=== PATIENT | male | born 1960 | race Caucasian/White ===

== ENCOUNTER 2023-05-30 22:38 | Emergency (ER) | payer MEDICARE, MEDICAID, SELFPAY ==
--- NOTE | 2023-05-30 22:38 | RT.EKG_ITS ---
APPROVED REPORT Exam: Resting ECG Reason for Exam: chest pain Patient Location: E HR:84 bpm ECG Measurements Heart Rate 84 AXIS AR 186 P 80 QRSd 90 QRS 30 QT 380 T 50 QTc 449 Conclusion Sinus rhythm...normal P axis, V-rate 60- 99 Anteroseptal infarct, age indeterminate...Q >35mS, T neg, V1-V2 Physician: no stemi
[2023-05-30 22:39] VITALS: BP 148/86; PULSE 81; RESP 18; TEMP 36.3; O2SAT 96
--- NOTE | 2023-05-30 22:45 | DI.CT_ITS ---
Exam(s) CT HEAD CERVICAL SPINE WO EXAM: CT HEAD CERVICAL SPINE WO CLINICAL HISTORY: fell, hit head, drunk. TECHNIQUE: Imaging Protocol: Axial computed tomography images with coronal and sagittal reformatted images were created and reviewed COMPARISON: No exams were available for comparison FINDINGS: BRAIN: There are no skull fractures nor fluid in the visualized paranasal sinuses. There is no evidence of intracranial hemorrhage, mass effect, or shift of midline structures. There are no extra-axial fluid collections. The ventricles are not enlarged or shifted and there is no blo od within the ventricular system nor within the basal cisterns. CERVICAL SPINE: There is no evidence of fracture nor listhesis. No significant prevertebral soft tissue swelling. Minimal disc space narrowing. There is multilevel bilateral facet arthropathy. There is no significant facet joint malalignment. No significant osseous lesions evident. IMPRESSION: No acute intracranial findings on this noninfused CT scan of the brain. No evidence of cervical spine fracture, malalignment, nor acute compromise of the cervical spinal can al. RADIATION DOSE DELIVERED: Total DLP DATA REPOSITORY: All CT scans at this facility are submitted to the National Radiology Data Registry (NRDR) Dose Index Registry (DIR) with the [employer] (ACR). RADIATION OPTIMIZATION: All CT scans at this facility use at least one of these dose optimization te chniques: automated exposure control; mA and/or kV adjustment per patient size (includes targeted exa ms where dose is matched to clinical indication); or iterative reconstruction.
--- NOTE | 2023-05-30 22:45 | DI.CT_ITS ---
Exam(s) CT THORACIC SPINE RECONS EXAM: CT THORACIC SPINE RECONS CLINICAL HISTORY: fell, hit left clavicle, old fx, generalized CP. TECHNIQUE: Imaging Protocol: Axial computed tomography images with coronal and sagittal reformatted images were created and reviewed. CONTRAST MATERIAL: None COMPARISON: CT CT CHEST WO from 05/30/2023 FINDINGS: OSSEOUS: No evidence of compression fracture or listhesis. No facet malalignment. Multilevel degene rative changes. IMPRESSION: No acute fractures in the thoracic spinal column. RADIATION DOSE DELIVERED: Total DLP DATA REPOSITORY: All CT scans at this facility are submitted to the National Radiology Data Registry (NRDR) Dose Index Registry (DIR) with the [employer] (ACR). RADIATION OPTIMIZATION: All CT scans at this facility use at least one of these dose optimization te chniques: automated exposure control; mA and/or kV adjustment per patient size (includes targeted exa ms where dose is matched to clinical indication); or iterative reconstruction.
--- NOTE | 2023-05-30 22:45 | DI.CT_ITS ---
Exam(s) CT CHEST WO EXAM: CT CHEST WO CLINICAL HISTORY: fell, hit left clavicle, old fx, generalized CP. TECHNIQUE: Multi planar reconstructions were performed. CONTRAST MATERIAL: None COMPARISON: CT CT THORACIC SPINE RECONS from 05/30/2023 FINDINGS: CHEST: LUNGS: There is respiratory motion artifact. No evidence of lung contusion or pleural effusion no pn eumothorax. No incidental lung masses. No findings in trachea and mainstem bronchi. MEDIASTINUM: No evidence of sternal fracture or mediastinal hematoma. No hilar nor mediastinal adeno luna. Visualized thyroid unremarkable.No obvious axillary adenopathy CARDIAC: Heart size is normal. There is no pericardial effusion.Caliber of the thoracic aorta is wit hin normal limits. OSSEOUS: Nonacute appearing comminuted nonunion fracture of the left clavicle. No acute fractures id entified. Posterior right rib fractures, not acute.. Healed right rib fractures.. IMPRESSION: 1. No acute intrathoracic trauma findings. 2. Bilateral rib fractures which do not appear acute RADIATION DOSE DELIVERED: Total DLP DATA REPOSITORY: All CT scans at this facility are submitted to the National Radiology Data Registry (NRDR) Dose Index Registry (DIR) with the [employer] (ACR). RADIATION OPTIMIZATION: All CT scans at this facility use at least one of these dose optimization te chniques: automated exposure control; mA and/or kV adjustment per patient size (includes targeted exa ms where dose is matched to clinical indication); or iterative reconstruction.
[2023-05-30 22:46] VITALS: RESP 18
[2023-05-30] MEDS: Normal Saline 500 ML IV (22:54)
[2023-05-30 23:00] LABS: Abs Immature Grans 0.06 10^3/uL (0.0-0.06); Absolute Basophil Count 0.07 10^3/uL (0.0-0.2); Absolute Eosinophil Count 0.07 10^3/uL (0.0-0.7); Basophils % 0.6; Eosinophils % 0.6; HCT 48.7 % (40.0-50.0); HGB 15.9 g/dL (13.5-17.5); Immature Grans % 0.5; Lymphocytes % 29.9; MCH 29.1 pg (27.0-33.0); MCHC 32.6 % (32.0-36.0); MCV 89 fL (80-95); MPV 9.9 fL (8.0-11.0); Monocytes % 4.5; Neutrophils % 63.9; Platelet Count 376 10^3/uL (130-400); RBC 5.47 10^6/uL (4.36-5.78); RDW 15.6 % (11.8-14.1); RDW-SD 51.3 fL; WBC 11.22 10^3/uL (4.4-10.8)
--- NOTE | 2023-05-30 23:00 | W.ED.GENAD ---
Discharge Plan Disposition Patient Disposition: [facility] Discharge Details Chief Complaint: Chest Pain Clinical Impression: Alcohol intoxication, Closed fracture of left clavicle Primary Care Provider: Unknown,Unknown ED Provider: Ken Duran Home Meds and New Rx's Prescriptions: No Action amitriptyline 10 mg tablet 20 mg PO QHS amlodipine 10 mg tablet 10 mg PO DAILY atorvastatin 40 mg tablet 40 mg PO DAILY vitamin B complex [B Complex-Vitamin B12] Tablet 1 tab PO DAILY cholecalciferol (vitamin D3) 25 mcg (1,000 unit) capsule 25 mcg PO DAILY clonazepam 1 mg tablet 1 mg PO PRN fenofibrate 150 mg capsule 145 mg PO DAILY fluticasone propionate 50 mcg/actuation spray,suspension 2 spray intranasal DAILY PRN Rx Instructions: administer into each nostril gabapentin 300 mg capsule 900 mg PO QHS magnesium oxide 400 mg (241.3 mg magnesium) tablet 400 mg PO DAILY metoprolol succinate 200 mg capsule,sprinkle,ER 24hr 200 mg PO DAILY omeprazole 40 mg capsule,delayed release(DR/EC) 40 mg PO DAILY pramipexole 0.125 mg tablet 0.125 mg PO QHS topiramate 100 mg tablet 100 mg PO BID Discharge Instructions Instructions: Clavicle Fracture (ED), Alcohol Intoxication (ED) Additional Instructions: At this time your left clavicle remains unhealed with a chronic old fracture. Please use the sling as directed. If you notice any worsening of your symptoms, or any new symptoms such as vomiting, diarrhea, fever, chills, shortness of breath, chest pain, numbness, weakness, or fainting , please return immediately to the emergency department for reevaluation. Please follow up with your primary care provider as soon as possible for reassessment and reevaluation. As always, it was a pleasure participating in your medical care today. Medical Decision Making This is a 63-year-old male with a reported past medical history of bipolar disorder, CKD, hypertension, seizures and alcohol use disorder who presents today for chest pain. It appears that earlier today patient was at home, per patient answered the door and then fell and hit his chest and head. This caused pain in his left clavicle which had previously been fractured in the past, and some mild chest pain. He continued to drink throughout the day and was eventually brought to [facility] and evaluated. Per the evaluation he did not reveal to practitioners there that he had some chest pain. He was worked up and had a stable EKG, mild hypernatremia, but no other significant abnormality. He was eventually discharged and medically cleared and placed into the custody of police for transition to the sobriety unit. On his way there the patient began complaining of chest pain and upon arrival to the sobriety unit he was evaluated by EMS and then brought to the ER for further assessment. He is not under custody of the police, however plan is for him to go back to the sobriety unit after clearance. Aside from pain in his left clavicle and generalized pain in his chest he denies any other complaints. No history of heart attack. Left clavicle pain is made worse with palpation and movement. Chest pain is very mild and located in the left ribs and right ribs on palpation. No other modifying factors. Exam demonstrates an intoxicated appearing male, no significant trauma except for the left clavicle. Due to the nature of his previously undisclosed injury I do feel that further imaging is indicated. With his risk factors we will get a CT scan of the head neck and chest. Differential includes subdural, clavicle fracture, rib fractures. Less likely pneumothorax. We will gently rehydrate, get repeat labs, monitor closely and reassess. EKG shows no evidence of STEMI. 12:48 AM Laboratory work-up is returned stable, sodium 148, chloride 109, troponin normal, alcohol level 226. EKG benign. CT scan of the head and cervical spine demonstrate no acute process. 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 Patient is otherwise notably clinically stable with no evidence of neurologic deficit or other acute process.. Patient will be disposition to police to the intoxication area. Discussed red flags which to return. I have extensively reviewed the treatment plan and discharge instructions with the patient. I have addressed all patient concerns at this time. The patient was made aware of what symptoms to monitor for that would warrant a return to the emergency department. Discussed the plan with the patient, they demonstrate verbal understanding and agreement with our assessment and plan at this time. The documentation in this chart was dictated using [employer] dictation software. Please excuse any dictation errors. FINDINGS: Bones/joints: No acute fracture or subluxation. Prominent calcification and atrophy of ligamentum flavum most pronounced C5-C6 and C6-C7 levels resulting in likely mild central canal stenosis at these levels. Minor endplate hypertrophy and anterior enthesophytes without richie ankylosis. Soft tissues: No suspicious lesions. IMPRESSION: No acute bony pathology. Thank you for allowing us to participate in the care of your patient. Dictated and Authenticated by: Rose Chung MD 05/31/2023 12:28 AM Eastern Time ([place] & [place]) FINDINGS: Lungs: No airspace consolidation. The lungs appear hyperinflated. Mild apical pulmonary emphysema.Scattered microatelectasis. Pleural spaces: No pneumothorax. No pleural effusion. Heart: No cardiomegaly. No pericardial effusion. Lymph nodes: No enlarged lymph nodes. Vasculature: No aortic aneurysm. Kidneys and ureters: Mild prominence right and left renal pelvis without calyceal dilation in the imaged kidneys favoring benign extrarenal pelvis bilaterally. Bones/joints: Chronic healed right rib deformities. Chronic healed left rib deformities. No acute fracture or listhesis allowing for motion artifact. There is a right anterolateral 8th rib fracture which appears subacute and is healing. The left clavicular deformity appears chronic and ununited. Soft tissues: No suspicious lesions. Other findings: Motion artifact. IMPRESSION: 1. No acute findings on noncontrast imaging. FINDINGS: Brain: Cerebrum is unremarkable. Brown-white matter differentiation is intact. No mass lesion is seen. No mass effect or midline shift. Thalamus is unremarkable. No evidence of hemorrhage. Cerebellum is unremarkable. No posterior fossa mass lesion or mass effect. No pathologic edema. No evidence of cerebellar hemorrhage. Brainstem is unremarkable. No evidence of pontine hemorrhage. No mass effect on the brainstem. Cerebral ventricles: No ventriculomegaly. Paranasal sinuses: Visualized sinuses are unremarkable. No fluid levels. Mastoid air cells: Visualized mastoid air cells are well aerated. Bones/joints: No evidence of fracture. Soft tissues: Unremarkable. IMPRESSION: No evidence of fracture. No evidence of acute intracranial bleed. FINDINGS: Bones/joints: Facet arthropathy at multiple levels. No fracture or dislocation in cervical spine. Limited visualization of old fracture of left clavicle with areas of nonunion. No disc protrusion or extrusion. Lungs: Lung apices are normal. Soft tissues: Unremarkable. IMPRESSION: 1. No fracture or dislocation in cervical spine. 2. Limited visualization of old fracture of left clavicle with areas of nonunion. Thank you for allowing us to participate in the care of your patient. Dictated and Authenticated by: Alicia Esqueda MD 05/31/2023 12:25 AM Eastern Time ([place] & [place]) HPI General Date/Time Provider Initiated Documentation: 05/30/23 22:40. HPI Narrative: This is a 63-year-old male with a reported past medical history of bipolar disorder, CKD, hypertension, seizures and alcohol use disorder who presents today for chest pain. It appears that earlier today patient was at home, per patient answered the door and then fell and hit his chest and head. This caused pain in his left clavicle which had previously been fractured in the past, and some mild chest pain. He continued to drink throughout the day and was eventually brought to [facility] and evaluated. Per the evaluation he did not reveal to practitioners there that he had some chest pain. He was worked up and had a stable EKG, mild hypernatremia, but no other significant abnormality. He was eventually discharged and medically cleared and placed into the custody of police for transition to the sobriety unit. On his way there the patient began complaining of chest pain and upon arrival to the sobriety unit he was evaluated by EMS and then brought to the ER for further assessment. He is not under custody of the police, however plan is for him to go back to the sobriety unit after clearance. Aside from pain in his left clavicle and generalized pain in his chest he denies any other complaints. No history of heart attack. Left clavicle pain is made worse with palpation and movement. Chest pain is very mild and located in the left ribs and right ribs on palpation. No other modifying factors. Related Data Home Medications Medication Instructions Recorded Confirmed amitriptyline 10 mg tablet 20 mg PO QHS 05/30/23 05/30/23 amlodipine 10 mg tablet 10 mg PO DAILY 05/30/23 05/30/23 atorvastatin 40 mg tablet 40 mg PO DAILY 05/30/23 05/30/23 cholecalciferol (vitamin D3) 25 25 mcg PO DAILY 05/30/23 05/30/23 mcg (1,000 unit) capsule clonazepam 1 mg tablet 1 mg PO PRN 05/30/23 05/30/23 fenofibrate 150 mg capsule 145 mg PO DAILY 05/30/23 05/30/23 fluticasone propionate 50 2 spray intranasal DAILY PRN 05/30/23 05/30/23 mcg/actuation nasal spray,suspension gabapentin 300 mg capsule 900 mg PO QHS 05/30/23 05/30/23 magnesium oxide 400 mg (241.3 mg 400 mg PO DAILY 05/30/23 05/30/23 magnesium) tablet metoprolol succinate 200 mg 200 mg PO DAILY 05/30/23 05/30/23 capsule sprinkle, ext. release 24 hr omeprazole 40 mg capsule,delayed 40 mg PO DAILY 05/30/23 05/30/23 release pramipexole 0.125 mg tablet 0.125 mg PO QHS 05/30/23 05/30/23 topiramate 100 mg tablet 100 mg PO BID 05/30/23 05/30/23 vitamin B complex (B 1 tab PO DAILY 05/30/23 05/30/23 Complex-Vitamin B12 tablet) Allergies Allergy/AdvReac Type Severity Reaction Status Date / Time latex Allergy Mild Hives Unverified 05/30/23 22:56 phenytoin [From Dilantin] Allergy Mild Hives Unverified 05/30/23 22:56 General Stated Complaint: Chest Pain LIZ: 2 Review of Systems All systems reviewed & are unremarkable except as noted in HPI and below PFSH All Active Problems (Updated 05/31/23 @ 00:48 by Ken Duran DO) Closed fracture of left clavicle (Acute) Alcohol intoxication (Acute) Social History Smoking/Tobacco Use Status: Never Smoking risk assessment performed?: Yes Drug use: Daily Substance use type: marijuana Exam Narrative Exam Narrative: 1.Const: Well-nourished, Well-developed, appearing stated age 2.Eyes: PERRL, no conjunctival injection, and symmetrical lids. 3.ENT: Atraumatic external nose and ears. Moist MM. Neck: Symmetric, trachea midline, No thyromegaly. There is no evidence of raccoon eyes, welsh sign, CSF rhinorrhea, mastoid tenderness, cranial crepitus, hemotympanum, exophthalmos, or hyphema. Patient demonstrates intact dentition with no signs of tooth avulsion or fracture, no signs of jaw deformity, no evidence of a LeFort's fracture, with an intact palate, nose and orbital region. There is no evidence of a nasal septal hematoma. No proptosis. Jaw closes symmetrically. Airway is clear. 4.CVS: +S1/S2, No murmurs or gallops. Peripheral pulses 2+ and equal in all extremities. Brisk capillary refill in all extremities. 5.RESP: Unlabored respiratory effort. Clear to auscultation bilaterally. No wheezes rales or rhonchi 6.GI: Soft, Nontender/Nondistended, No hepatosplenomegaly. No guarding or rebound. 7.MSK: Normocephalic. Extremities w/o deformity or ttp No cyanosis or clubbing, normal movement of all extremities. Patient's left clavicle demonstrates what appears to be an old fracture site with enlarged healing growth area. This is notably tender at this time. Mild tenderness throughout the left and right ribs on palpation. No significant cervical thoracic or lumbar spine tenderness. No tenderness in extremities. 8.Skin: Warm, Dry. No rashes or lesions. 9.Neuro: hand mixer II-XII grossly intact. Sensation grossly intact, no focal neurologic deficits. 10.Psych: (AAO) x3. Appropriate mood and affect. Patient appears mildly intoxicated Course Vital Signs Vital signs: Vital Signs Temperature 36.3 C L 05/30/23 22:39 Pulse 81 05/30/23 22:39 Respiratory Rate 18 05/30/23 22:39 Blood Pressure 148/86 H 05/30/23 22:39 Pulse Oximetry 96 05/30/23 22:39 Temperature 36.3 C L 05/30/23 22:39 Temperature Source Temporal Artery Scan 05/30/23 22:39 Pulse 81 05/30/23 22:39 Respiratory Rate 18 05/30/23 22:46 Respiratory Effort Normal, Non-Labored 05/30/23 22:46 Respiratory Depth Normal 05/30/23 22:46 Respiratory Pattern Normal 05/30/23 22:46 Blood Pressure 148/86 H 05/30/23 22:39 Pulse Oximetry 96 05/30/23 22:39 Oxygen Delivery Method Room Air 05/30/23 22:39 Oxygen Flow Rate 0 05/30/23 22:39 Pain Level 10 05/30/23 22:39 PAWSS Have you Been Recently Intoxicated or Drunk Within the Last 30 days?: Yes Have you Ever Experienced Previous Episodes of Alcohol Withdrawal?: Yes Have you ever Experienced Withdrawal Seizures?: Yes Have you ever Experienced Delirium Tremens(DT)s?: No Have you ever undergone Alcohol Rehabilitation Treatment (i.e, inpt ot outpatient treatment programs)?: Yes Have you ever Experienced Blackouts?: No Have you ever Combined Alcohol with other Downers within the last 90 days?: No Have you ever Combined Alcohol with any other Substance of Abuse during the last 90 days?: No Positive Blood Alcohol level on Presentation? [PCS.BAL]: Yes Evidence of Increased Autonomic Activity (i.e. HR>120, tremor, sweating, agitation, nausea)?: Yes Result: 6
[2023-05-30 23:01] LABS: Absolute Lymphocyte Count 3.35 10^3/uL (1.2-3.4); Absolute Neutrophil Count 7.17 10^3/uL (1.2-6.7)
[2023-05-30 23:18] LABS: Magnesium 2.1 mg/dL (1.8-2.4)
[2023-05-30 23:25] LABS: ALT 38 U/L (16-63); AST 30 U/L (15-37); Albumin 4.6 g/dL (3.4-5.0); Alkaline Phosphatase 34 U/L (46-116); Anion Gap 15.4 mmol/L (3-11); BUN 10 mg/dL (7-18); Bilirubin, Total 0.3 mg/dL (0.2-1.0); CO2 23.6 mmol/L (21.0-32.0); CREATININE 1.3 mg/dL (0.70-1.30); Calcium 9.5 mg/dL (8.5-10.1); Chloride 109 mmol/L (98-107); ETHANOL BLOOD 226.6 mg/dL (<10); Glucose 98 mg/dL (74-106); Sodium 148 mmol/L (136-145); Total Protein 8.6 g/dL (6.4-8.2); Troponin I < 50 ng/L (<or=60)
--- NOTE | 2023-05-31 00:26 | DI.VRAD_ITS ---
PROCEDURE INFORMATION: Exam: CT Head Without Contrast Exam date and time: 05/30/2023 11:30 PM Age: 63 years old Clinical indication: Headache; Neck pain; Additional info: Fell, hit head, hit lt clavicle, old FX, generalized cp TECHNIQUE: Imaging protocol: Computed tomography of the head without contrast. COMPARISON: No relevant prior studies available. FINDINGS: Brain: Cerebrum is unremarkable. Brown-white matter differentiation is intact. No mass lesion is seen. No mass effect or midline shift. Thalamus is unremarkable. No evidence of hemorrhage. Cerebellum is unremarkable. No posterior fossa mass lesion or mass effect. No pathologic edema. No evidence of cerebellar hemorrhage. Brainstem is unremarkable. No evidence of pontine hemorrhage. No mass effect on the brainstem. Cerebral ventricles: No ventriculomegaly. Paranasal sinuses: Visualized sinuses are unremarkable. No fluid levels. Mastoid air cells: Visualized mastoid air cells are well aerated. Bones/joints: No evidence of fracture. Soft tissues: Unremarkable. IMPRESSION: No evidence of fracture. No evidence of acute intracranial bleed. PROCEDURE INFORMATION: Exam: CT Cervical Spine Without Contrast Exam date and time: 05/30/2023 11:30 PM Age: 63 years old Clinical indication: Headache; Neck pain; Additional info: Fell, hit head, hit lt clavicle, old FX, generalized cp TECHNIQUE: Imaging protocol: Computed tomography of the cervical spine without contrast. COMPARISON: No relevant prior studies available. FINDINGS: Bones/joints: Facet arthropathy at multiple levels. No fracture or dislocation in cervical spine. Limited visualization of old fracture of left clavicle with areas of nonunion. No disc protrusion or extrusion. Lungs: Lung apices are normal. Soft tissues: Unremarkable. IMPRESSION: 1. No fracture or dislocation in cervical spine. 2. Limited visualization of old fracture of left clavicle with areas of nonunion. Dictated and Authenticated by: Alicia Esqueda MD. Ordering:VADIM Rogers MD
--- NOTE | 2023-05-31 00:29 | DI.VRAD_ITS ---
PROCEDURE INFORMATION: Exam: CT Chest Without Contrast; Diagnostic Exam date and time: 05/30/2023 23:33 Age: 63 years old Clinical indication: Injury or trauma; Fall; Blunt trauma (contusions or hematomas); Injury details: Fell, hit head, hit lt clavicle, old FX, generalized cp TECHNIQUE: Imaging protocol: Diagnostic computed tomography of the chest without contrast. COMPARISON: CT CHEST WO 05/30/2023 23:33 FINDINGS: Lungs: No airspace consolidation. The lungs appear hyperinflated. Mild apical pulmonary emphysema.Scattered microatelectasis. Pleural spaces: No pneumothorax. No pleural effusion. Heart: No cardiomegaly. No pericardial effusion. Lymph nodes: No enlarged lymph nodes. Vasculature: No aortic aneurysm. Kidneys and ureters: Mild prominence right and left renal pelvis without calyceal dilation in the imaged kidneys favoring benign extrarenal pelvis bilaterally. Bones/joints: Chronic healed right rib deformities. Chronic healed left rib deformities. No acute fracture or listhesis allowing for motion artifact. There is a right anterolateral 8th rib fracture which appears subacute and is healing. The left clavicular deformity appears chronic and ununited. Soft tissues: No suspicious lesions. Other findings: Motion artifact. IMPRESSION: 1. No acute findings on noncontrast imaging. 2. Incidental findings as described. PROCEDURE INFORMATION: Exam: CT Thoracic Spine Without Contrast Exam date and time: 05/30/2023 23:33 Age: 63 years old Clinical indication: Injury or trauma; Fall; Blunt trauma (contusions or hematomas); Injury details: Fell, hit head, hit lt clavicle, old FX, generalized cp TECHNIQUE: Imaging protocol: Computed tomography of the thoracic spine without contrast. COMPARISON: CT CHEST WO 05/30/2023 23:33 FINDINGS: Bones/joints: No acute fracture or subluxation. Prominent calcification and atrophy of ligamentum flavum most pronounced C5-C6 and C6-C7 levels resulting in likely mild central canal stenosis at these levels. Minor endplate hypertrophy and anterior enthesophytes without richie ankylosis. Soft tissues: No suspicious lesions. IMPRESSION: No acute bony pathology. Dictated and Authenticated by: Rose Chung MD. Ordering:VADIM Rogers MD
[2023-05-31 01:09] VITALS: BP 131/61; PULSE 98; RESP 18; O2SAT 98
--- NOTE | 2023-05-31 01:11 | NUR.NOTE ---
sling applied to L arm. PMS intact. Nursing Note:
== END 2023-05-31 01:21 ==
LOC: ER 05-31 01:05
PROVIDERS: Emergency Provider Student in an Organized Health Care Education/Training Program
DX: R07.9 Chest pain, unspecified (principal); F10.120 Alcohol abuse with intoxication, uncomplicated; S42.022K Displaced fracture of shaft of left clavicle, subsequent encounter for fracture with nonunion; R94.31 Abnormal electrocardiogram [ECG] [EKG]; I12.9 Hypertensive chronic kidney disease with stage 1 through stage 4 chronic kidney disease, or unspecified chronic kidney disease; N18.9 Chronic kidney disease, unspecified; Z79.899 Other long term (current) drug therapy; Y90.7 Blood alcohol level of 200-239 mg/100 ml; X58.XXXD Exposure to other specified factors, subsequent encounter
CPT/HCPCS: 36415; 71250; 80053; 93005; 96360; 99284; 70450; 72125; 80320; 83735; 84484; 85025; 93010

== ENCOUNTER 2023-05-31 09:12 | Emergency (ER) | payer MEDICARE, MEDICAID, SELFPAY ==
[2023-05-31] VITALS (24 sets, daily range): BP systolic 129–178; BP diastolic 72–120; PULSE 71–97; RESP 18; TEMP 36.4–37.1; O2SAT 91–99
--- NOTE | 2023-05-31 09:20 | W.ED.GENAD ---
Discharge Plan Disposition Patient Disposition: Home Condition: Stable Discharge Details Clinical Impression: Seizure disorder Primary Care Provider: Unknown,Unknown ED Provider: Ken Hartman Home Meds and New Rx's Prescriptions: Continued amitriptyline 10 mg tablet 20 mg PO QHS amlodipine 10 mg tablet 10 mg PO DAILY atorvastatin 40 mg tablet 40 mg PO DAILY vitamin B complex [B Complex-Vitamin B12] Tablet 1 tab PO DAILY cholecalciferol (vitamin D3) 25 mcg (1,000 unit) capsule 25 mcg PO DAILY clonazepam 1 mg tablet 1 mg PO PRN fenofibrate 150 mg capsule 145 mg PO DAILY fluticasone propionate 50 mcg/actuation spray,suspension 2 spray intranasal DAILY PRN Rx Instructions: administer into each nostril gabapentin 300 mg capsule 900 mg PO QHS magnesium oxide 400 mg (241.3 mg magnesium) tablet 400 mg PO DAILY metoprolol succinate 200 mg capsule,sprinkle,ER 24hr 200 mg PO DAILY omeprazole 40 mg capsule,delayed release(DR/EC) 40 mg PO DAILY pramipexole 0.125 mg tablet 0.125 mg PO QHS topiramate 100 mg tablet 100 mg PO BID Discharge Instructions Instructions: Recurrent Seizures in Adults (ED) Additional Instructions: You were seen in the emergency department for your aura of your regular seizures without seizure activity-you state that you are in police custody for detox over the past day and suffered a fall that you were seen in the emergency department and diagnosed with a fracture of left clavicle. We provided you with your regular dose of Topamax as well as an Ativan to prophylax any seizure activity, we provided you food and beverage. He stated you are comfortable to be discharged charged home. Physical therapy evaluated you and stated that you need to use a front wheeled walker which we provided, it states that your 4 wheeled walker would be unsafe around the house. I also filled out a consult for you to obtain home health physical therapy services. Please do not hesitate to return to the emergency department for any seizure activity, please resume all your normal medications, we did send out a Topamax blood level that should be available within a few days. Please cease alcohol use. Referrals: [facility]den [facility]ara,[facility] [OTHER] - Discharge Data Discharge Date/Time-TO BE ENTERED AT DEPARTURE: 05/31/23 13:18 Medical Decision Making This dictation utilizes [id number] dictation software and may contain unedited grammatical errors. 63 y/o M presents to ED today with a chief complaint of possible early aura of his known seizure disorder- has not had his BID topimax since - states he was intoxicated suffered a fall- and has been worked up by two ED visits since onset yesterday morning [place] [facility] last night at 2300 showing a chronic L clavicle fracture. 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 He states he thought he was being sent home today from sobriety unit but EMS brought him here. States he has his medications at home, and just needs a ride home- clinically sober at this point. Patient has relevant history of hypertension, neuropathy, alcohol use disorder, epilepsy. Family and social history: binge drinking 1/2 gallon hard alcohol twice a month. Pertinent exam findings / vital signs include clinically sober, baseline gait with walker, no asterixis, answering questions appropriately with stable vitals and benign cardiopulmonary status, nontoxic. Differential / pathologies of concern include seizure disorder, mobility problems, etoh abuse. Diagnostic studies of: -topiramate level (send-out). Interventions of: -at-home dose of 100mg topimax, 1mg PO ativan on arrival- no seizure activity -gave PO nutrition and hydration, observed -PT consult for mobility issues with his fractured L clavicle and baseline walker use. ED Course: Patient presents from sobriety unit at , has been seen multiple times in multiple ERs from a fall while intoxicated, has known epilepsy and has not taken his medicine since Saturday, he was provided seizure prophylaxis on arrival, showed no signs of impending status epilepticus, tolerated p.o meal intake without issue and was seen by physical therapy who recommended front wheeled walker which was provided for him to replace his 4 wheeled walker. Provided home health referral and arranged patient for transport [place] [facility] [employer] [place] obtain his house keys. Findings not consistent with active seizure, severe ETOH withdrawal- patient is clinically sober and appears stable on arrival. Disposition of Encounter for Seizure Disorder. Assessment/Plan: Patient verbalized understanding of the plan and return to ED criteria and engaged in shared decision making. Medical Records Medical records reviewed: Yes I reviewed the patient's medical records. Lab Data Lab results reviewed: Yes I reviewed the patient's lab results. Lab results narrative: Patient's lab results from last night's visit were overall unremarkable with slight hypernatremia, alcohol was 226 at that time, he is clinically sober without acute suspicion for other pathology needing laboratory work-up beyond the prior 2 ED visits he had in the past day. HPI General Date/Time Provider Initiated Documentation: 05/31/23 09:18. HPI Narrative: 63 year-old male presents to ED today by EMS from sobriety unit at with a chief complaint of aura of seizure with sparkles in his vision which is his chronic aura of seizure- patient states he has epilepsy, has not had his medication since Saturday, endorses EtOH use disorder. Patient suffered a fall with chest pain yesterday while intoxicated, he was brought to [facility] and evaluated and discharged to sobriety unit, they then brought him here where he was evaluated with negative CT scans, he has a chronic left clavicle fracture. He had mild hyponatremia but no acute severe alcohol withdrawals while in this emergency department 2300 last night. Quality described as pain in his L shoulder, mild tremors, which are chronic due to a past TBI- states he uses a walker at home, no radiation to history of ETOH withdrawal seizures, denies active seizure activity while in sobriety unit, denies active chest pain or shortness of breath, denies fever. Severity is described as 8/10. Palliating factors include nothing specific attempted. Provoking factors include nothing specific. Events leading up to the incident/Associated Symptoms: Patient states he engages in binge drinking about twice a month of 1/2 gallon of hard alcohol. Patient not anticoagulated. Related Data Home Medications Medication Instructions Recorded Confirmed amitriptyline 10 mg tablet 20 mg PO QHS 05/30/23 05/31/23 amlodipine 10 mg tablet 10 mg PO DAILY 05/30/23 05/31/23 atorvastatin 40 mg tablet 40 mg PO DAILY 05/30/23 05/31/23 cholecalciferol (vitamin D3) 25 25 mcg PO DAILY 05/30/23 05/31/23 mcg (1,000 unit) capsule clonazepam 1 mg tablet 1 mg PO PRN 05/30/23 05/31/23 fenofibrate 150 mg capsule 145 mg PO DAILY 05/30/23 05/31/23 fluticasone propionate 50 2 spray intranasal DAILY PRN 05/30/23 05/31/23 mcg/actuation nasal spray,suspension gabapentin 300 mg capsule 900 mg PO QHS 05/30/23 05/31/23 magnesium oxide 400 mg (241.3 mg 400 mg PO DAILY 05/30/23 05/31/23 magnesium) tablet metoprolol succinate 200 mg 200 mg PO DAILY 05/30/23 05/31/23 capsule sprinkle, ext. release 24 hr omeprazole 40 mg capsule,delayed 40 mg PO DAILY 05/30/23 05/31/23 release pramipexole 0.125 mg tablet 0.125 mg PO QHS 05/30/23 05/31/23 topiramate 100 mg tablet 100 mg PO BID 05/30/23 05/31/23 vitamin B complex (B 1 tab PO DAILY 05/30/23 05/31/23 Complex-Vitamin B12 tablet) Allergies Allergy/AdvReac Type Severity Reaction Status Date / Time latex Allergy Mild Hives Unverified 05/31/23 09:15 phenytoin [From Dilantin] Allergy Mild Hives Unverified 05/31/23 09:15 General Stated Complaint: Seizure LIZ: 3 Review of Systems All systems reviewed & are unremarkable except as noted in HPI and below PFSH All Active Problems (Updated 05/31/23 @ 12:45 by JMAAAL Blair) Seizure disorder (Chronic) Closed fracture of left clavicle (Acute) Alcohol intoxication (Acute) Social History Smoking/Tobacco Use Status: Never Smoking risk assessment performed?: Yes Alcohol Intake: current Alcohol Intake frequency: a few times a month Alcohol type: hard liquor Drug use: Daily Substance use type: marijuana Exam Narrative Exam Narrative: GENERAL APPEARANCE: Well-nourished, non-toxic, awake and alert, atraumatic, no acute distress. SKIN: Warm, pink, dry, intact, without rashes/lesions/ulcerations. HEAD: Normocephalic, atraumatic, normal hair distribution for gender/age. EYES: Pupils PERRLA, EOMs intact without nystagmus, normal conjunctiva, no exudates on lids/lashes. ENT: Nares patent, no circumoral cyanosis, no facial swelling NECK: Supple, trachea midline, painless cervical ROM. LUNGS/CHEST: Lungs CTA bilaterally, non-labored respirations, normal A/P diameter, symmetrical expansion, no chest wall deformity HEART (CV/PV): Regular rate and rhythm without murmur, no peripheral edema, no JVD. ABDOMEN: Soft, non-distended, no guarding. MSK: Normal ROM, no swelling/deformity to bilateral UEs or LEs, moving all extremities without weakness, no cyanosis, spine midline without tenderness, normal curvature. NEURO: Mental Status AAOx4 - alert to person, place, time, events No facial droop, no forehead involvement. Motor: No focal weakness - strength 5/5 in bilateral UEs and LEs, proximal and distal, symmetric. Sensory: sensation intact to light touch globally. Gait normal: patient ambulated without ataxia into ED room. PSYCH: euthymic, cooperative, pleasant, appropriate speech Course Vital Signs Vital signs: Vital Signs Temperature 37.1 C 05/31/23 09:12 Pulse 92 H 05/31/23 09:12 Respiratory Rate 18 05/31/23 09:12 Blood Pressure 172/97 H 05/31/23 09:12 Pulse Oximetry 98 05/31/23 09:12 Temperature 37.1 C 05/31/23 09:12 Temperature Source Oral 05/31/23 09:12 Pulse 92 H 05/31/23 09:12 Respiratory Rate 18 05/31/23 09:12 Respiratory Effort Normal, Non-Labored 05/31/23 09:17 Blood Pressure 172/97 H 05/31/23 09:12 Pulse Oximetry 98 05/31/23 09:12 Oxygen Delivery Method Room Air 05/31/23 09:12 Oxygen Flow Rate 0 05/31/23 09:12 Pain Level 10 05/31/23 09:12 Comment shoulder/ribs pain 05/31/23 09:12 PAWSS Have you Been Recently Intoxicated or Drunk Within the Last 30 days?: Yes Have you Ever Experienced Previous Episodes of Alcohol Withdrawal?: Yes Have you ever Experienced Withdrawal Seizures?: No Have you ever Experienced Delirium Tremens(DT)s?: Yes Have you ever undergone Alcohol Rehabilitation Treatment (i.e, inpt ot outpatient treatment programs)?: Yes Have you ever Experienced Blackouts?: Yes Have you ever Combined Alcohol with other Downers within the last 90 days?: Yes Have you ever Combined Alcohol with any other Substance of Abuse during the last 90 days?: Yes Positive Blood Alcohol level on Presentation? [PCS.BAL]: Yes Evidence of Increased Autonomic Activity (i.e. HR>120, tremor, sweating, agitation, nausea)?: No Result: 8
[2023-05-31] MEDS: Topiramate 100 MG TAB PO (09:32)
[2023-05-31] MEDS: LORazepam 1 MG TAB PO (09:32)
--- NOTE | 2023-05-31 11:40 | IN_ITS ---
PT Notes Visit Reasons: [facility] Inpatient Initial Evaluation Date: 05/31/2023 Referring Doctor: JAMAAL Barajas PT Orders: PT CONSULT: Walker at baseline, has fractured clavicle Precautions: Fall. Standard. Activity as tolerated. Patient Profile/Admitting Diagnosis: Patient is a 63-year-old male patient admitted fto the ED on 05/31/2023 due to early aura of known seizure disorder, intoxication, chronic L calvicular fracture PMHX: All Active Problems (Updated 05/31/23 @ 12:45 by JAMAAL Blair) Seizure disorder (Chronic) Closed fracture of left clavicle (Acute) Alcohol intoxication (Acute) Social History/Home Situation: Lives alone in a private home. Equipment Owned/DME: None Subjective: Reports being weak but was happy to know he could walk using the walker. Objective: General Observation: Supine on stretcher. Mental Status: Alert and oriented as to person, place, time, and purpose. Able to pay attention, focus, and respond appropriately. Pain: L clavicular pain minimal even with weightnearing using FWW ROM: Left Upper Extremity: Shoulder Flexion about 80 degrees actively. Shoulder abduction about 70 degrees. Elbow flexion WFL. Wrist flexion WFL. Functional opening and closing of hand WFL. Strength: Left Upper Extremity: Shoulder flexors 3-/5. Shoulder abductors 3-/5. Elbow flexors 4-/5. Elbow extensors 4-/5. Living Supervisor strong. Bed Mobility/Transfers: Supine to sit independent Sit to supine independent Sit to stand stand by assist Stand to sit stand by assist Gait: Facilitated safe performance of level surface ambulation using front wheeled walker covering a distance of 150 feet with step through gait pattern verbal cueing for walker management and directional changes only. Standby assist only. Balance: Static Sitting: Normal Dynamic Sitting: Normal Static Standing: Fair Dynamic Standing: Fair Special Tests: Mobility Limitations Standardized Measure [facility] AM-PAC 6 clicks Basic Mobility Inpatient Short Form: Raw Score: 24 CMS Score: 0% deficit Informed Consent/Education: Patient was instructed in purpose of PT consult. Agreeable to using FWW to add stability to walking. Assessment: Patient presents a front wheeled walker for all mobility ADL performance to maximize independence and reduce fall risk . Patient presents with clinical signs and symptoms consistent with current/admitting diagnoses that have resulted to mobility limitations, gait instability, generalized weakness, and overall ADL decline as demonstrated by the following impairment level findings: 1. Impaired activity tolerance 2. Limitation of joint range of motion in L shoulder Impairments are contributing to the following functional limitations: 1. Difficulty with ambulation without assistive device 2. Increased completion time for mobility ADL performance 3. Increased risk for falls 4. Difficulty with managing steps alone safely Patient is assessed as a [id number] low complexity based on the following: History:63 -year-old male with past medical history as indicated above Examination: Demonstrable impairment in strength, balance, and mobility level with underlying impairments and functional limitations as exhibited above Presentation: Stable Decision Makin low complexity Goals: N/A. PT evaluation only. M/A PT evaluation only. Plan of Care/Treatment Plan: N/A. PT evaluation only. M/A PT evaluation only. DISCHARGE RECOMMENDATIONS: [] Home with no services [] [X] Home with services. patient will benefit from home health PT services in order to progress mobility level using least restrictive assistive ambulatory device, assess home safety, identify additional equipment needs, and establish a functional maintenance program that will increase ability of patient to remain at home. [] Home with outpatient PT [] [] SNF for continued rehabilitation [] [] [facility] [] [] SNF versus LTC based on ability to participate and progress [] TREATMENT CODE/TIME: 23141 x 16 minutes for 1 unit beginning at 11:40 AM. Thank you for the opportunity to participate in the care of this patient. Melani Orta PT, DPT, CLT [facility] [place], [place]
[2023-06-03 20:26] LABS: Topiramate <1.0 mcg/mL
== END 2023-05-31 13:18 | disposition home or self-care (01) ==
PROVIDERS: Emergency Provider Physician Assistant
DX: G40.909 Epilepsy, unspecified, not intractable, without status epilepticus (principal); Z79.899 Other long term (current) drug therapy
CPT/HCPCS: 82962; 97161; 99282; 80201